=== PATIENT | female | born 1975 | race Caucasian/White ===

== ENCOUNTER 2018-07-22 09:54 | Emergency (ER) | payer OTHER ==
[~2018-07-22] VITALS: Ht 157.5 cm; Wt 59.0 kg
[2018-07-22 09:59] VITALS: BP 121/58; PULSE 88; RESP 18; Ht 157.5 cm; Wt 59.0 kg
--- NOTE | 2018-07-22 10:28 | ERD ---
ER Documentation Chief Complaint Chief Complaint vaginal bleeding; lower abdominal pain - - LMP 05/17/18 HPI 43-year-old G3, P2 female in her sixth week of presents with complaint of pelvic pain and vaginal bleeding for the past hour. States that she has not gone through any pads yet. States that the pain is located in the suprapubic area and is currently 8 out of 10 but she does not want medication for pain. She does not have an OB yet. Denies any fevers, vomiting, lightheadedness, palpitations, dysuria. Denies allergies. Denies medical problems. ROS All systems reviewed and are negative except as per history of present illness. Medications Home Meds Active Scripts Hydrocodone/Acetaminophen ([place] 5-325 Tablet) 1 Each Tablet, 1 TAB PO Q6H PRN for PAIN, #7 TAB Prov:TIFFANIE HAWTHORNE 07/22/18 FmHx Family History: No diabetes, No coronary disease, No other Physical Exam Vitals Vital Signs Date Temp Pulse Resp B/P (MAP) Pulse Ox O2 O2 Flow FiO2 Time Delivery Rate 07/22/18 98.5 88 18 121/58 100 09:59 (79) Physical Exam Const: No acute distress Head: Atraumatic Eyes: Normal Conjunctiva ENT: Normal External Ears, Nose and Mouth. Neck: Full range of motion. No meningismus. Resp: Clear to auscultation bilaterally Cardio: Regular rate and rhythm, no murmurs Abd: Tenderness to palpation rigidity in the suprapubic area. Negative McBurney's. Negative Mcduffie's. Skin: No petechiae or rashes Back: No midline or flank tenderness Ext: No cyanosis, or edema Neur: Awake and alert Psych: Normal Mood and Affect Result Diagram: 07/22/18 1025 Results 24 hrs Laboratory Tests Test 07/22/18 10:25 White Blood Count 11.8 10^3/ul Red Blood Count 4.42 10^6/ul Hemoglobin 13.1 g/dl Hematocrit 39.7 % Mean Corpuscular Volume 89.8 fl Mean Corpuscular Hemoglobin 29.6 pg Mean Corpuscular Hemoglobin Concent 33.0 g/dl Red Cell Distribution Width 12.7 % Platelet Count 250 10^3/UL Mean Platelet Volume 10.1 fl Immature Granulocytes % 0.600 % Neutrophils % 77.6 % Lymphocytes % 15.4 % Monocytes % 5.8 % Eosinophils % 0.3 % Basophils % 0.3 % Nucleated Red Blood Cells % 0.0 /100WBC Immature Granulocytes # 0.070 10^3/ul Neutrophils # 9.2 10^3/ul Lymphocytes # 1.8 10^3/ul Monocytes # 0.7 10^3/ul Eosinophils # 0.0 10^3/ul Basophils # 0.0 10^3/ul Nucleated Red Blood Cells # 0.0 10^3/ul Urine Color RED Urine Clarity SLIGHTLY CLOUDY Urine pH 6.0 Urine Specific [place] 1.008 Urine Ketones NEGATIVE mg/dL Urine Nitrite NEGATIVE mg/dL Urine Bilirubin NEGATIVE mg/dL Urine Urobilinogen NEGATIVE mg/dL Urine Leukocyte Esterase TRACE [place]/ul Urine Microscopic RBC > 182 /HPF Urine Microscopic WBC 79 /HPF Urine Bacteria FEW /HPF Urine Hemoglobin 3+ mg/dL Urine Glucose NEGATIVE mg/dL Urine Total Protein 1+ mg/dl Beta HCG, Quantitative 469.2 mIU/ml Procedures/MDM DIAGNOSTIC IMAGING REPORT Patient: NOLBERTO STOVER : 1975 Age: 43 Sex: F MR #: [id number] DOS: 07/22/18 1020 Ordering MD: TIFFANIE HAWTHORNE Location: [facility] Room/Bed: PROCEDURE: US OB. CLINICAL INDICATION: Vaginal bleeding. TECHNIQUE: Transabdominal and transvaginal sonographic evaluation of the uterus was performed. COMPARISON: None. FINDINGS: Uterus is anteverted and appears enlarged. Endometrium is thickened measuring 18 mm. There is a small fluid collection in the uterus, which could represent a small gestational sac. There is no visible pole or yolk sac. There is, isoechoic uterine mass measuring 7.1 x 6.9 x 9.5 cm. A second isoechoic uterine mass measures 4.9 x 4.8 x 4.6 cm. Ovaries were not visualized on this examination. There is no free pelvic fluid. IMPRESSION: 1. Small intrauterine fluid collection, could represent gestational sac. No vis ible pole or yolk sac. Recommend repeat pelvic sonogram in 7 days for reevaluation and to exclude ectopic . 2. Enlarged uterus with 2 solid uterine masses measuring up to 9.5 cm, sugge stive of fibroids. 3. Ovaries not visualized. RPTAT:AAEE Physician Wendi Date Time Electronically viewed and signed by Celia Boudreaux Physician on 07/22/2018 12:19 RM/ CC: TIFFANIE HAWTHORNE [phone] MDM: CBC was WNL and patient had no symptoms of anemia. Howver, there was no intrauterine was visualized. Differential include early , missed , or ectopic. There was no sonographic evidence of ectopic and patients pain had ceased at discharge. There was no other HCG to compare current levels to. Case was discussed with my supervising physician Dr Lin and he said she was fit for discharge with 48 hour follow up for repeat exam as well as US and beta quant. At this time i have low suspicion for ovarion torsion, ap pendicitis, ruptured ectopic, symptomatic anemia, or any other emergent condition. Patient advised to follow up with primary. Discharged with strict ER precautions. All questions answered at discharge. Departure Diagnosis: Primary Impression: Vaginal bleeding in patient at less than 20 weeks gestation Condition: Stable TIFFANIE HAWTHORNE July 22, 2018 10:28
[2018-07-22] MEDS ORDERED: HYDR-4011 PO (12:39)
== END 2018-07-22 12:50 | disposition home or self-care (01) ==
LOC: FTE 09:54
DX: O20.9 Hemorrhage in early pregnancy, unspecified (principal); R10.2 Pelvic and perineal pain; Z3A.01 Less than 8 weeks gestation of pregnancy
CPT/HCPCS: 36415; 76801; 76817; 81001; 84702; 85025; 86900; 86901; Z7502